=== PATIENT | male | born 1995 | race Caucasian/White ===

== ENCOUNTER 2019-05-25 21:05 | Inpatient (IN) | payer OTHER ==
[~2019-05-25] VITALS: Ht 160 cm; Wt 61.2 kg
[2019-05-25] MEDS ORDERED: CIPRO500 MG (21:40)
[2019-05-25] MEDS ORDERED: FLAGYL500MG (21:40)
--- NOTE | 2019-05-25 21:40 | NUR ---
SE RECIBE PTE ALERTA Y ORIENTADO X3,REFIERE TENER UN ABSESO PERIANAL,HILARIO TENIDO FIABRE ,LO ATENDIO EL HEBERT LE RECETO ANTIBIOTICOS SE LE ALIVIO HACE 3 SMITH LE VOLVIO A SALIR ,HILARIO TENIDO DIARREAS X3 HOY,PTE REFIERE SENTIRSE CANSADO.
[2019-05-30] MEDS ORDERED: CIPRO500 MG PO (07:59)
[2019-05-30] MEDS ORDERED: INTESTINEX680 M1 PO (07:59)
[2019-05-30] MEDS ORDERED: FLAGYL500MG PO (07:59)
== END 2019-05-30 13:39 | disposition home or self-care (01) | DRG 395 ==
LOC: ER 21:05 → SURH 05-26 07:28
PROVIDERS: ADMIT Surgery
PROC: 3E0T3BZ Introduction of Anesthetic Agent into Peripheral Nerves and Plexi, Percutaneous Approach (ICD-10-PCS; 2019-05-26)
PROC: BW21Y0Z Computerized Tomography (CT Scan) of Abdomen and Pelvis using Other Contrast, Unenhanced and Enhanced (ICD-10-PCS; 2019-05-26)
PROC: 0J9B30Z Drainage of Perineum Subcutaneous Tissue and Fascia with Drainage Device, Percutaneous Approach (ICD-10-PCS; principal; 2019-05-26 09:00)
PROC: 0D9Q30Z Drainage of Anus with Drainage Device, Percutaneous Approach (ICD-10-PCS; 2019-05-28)
DX: K61.0 Anal abscess (principal); K61.39 Other ischiorectal abscess; D72.828 Other elevated white blood cell count; K62.89 Other specified diseases of anus and rectum; K52.89 Other specified noninfective gastroenteritis and colitis; B96.3 Hemophilus influenzae [H. influenzae] as the cause of diseases classified elsewhere

== ENCOUNTER 2020-08-15 16:29 | Emergency (ER) | payer OTHER ==
[~2020-08-15] VITALS: Ht 160 cm; Wt 54.4 kg
[~2020-08-15 16:29] MED LIST: CIPRO500 MG; CIPRO500 MG PO; FLAGYL500MG; FLAGYL500MG PO; INTESTINEX680 M1 PO
== END 2020-08-15 20:12 | disposition home or self-care (01) ==
LOC: ER 16:29
DX: B34.9 Viral infection, unspecified (principal); Z03.818 Encounter for observation for suspected exposure to other biological agents ruled out